=== PATIENT | female | born 1985 | race Two or more races ===

== ENCOUNTER 2019-05-23 12:32 | Emergency (ER) | payer OTHER ==
[2019-05-23 12:45] VITALS: BP 143/78; PULSE 95; TEMP 97.9; BMI 24.0
--- NOTE | 2019-05-23 13:33 | PDOC ---
History of Present Illness - General Chief Complaint: Cold Symptoms Stated Complaint: flu Symptoms Time Seen by Provider: 05/23/19 13:26 - History of Present Illness Initial Comments: 05/23/19 13:32 33-year-old female without comorbidities presents for flulike symptoms x1 day positive flu contact at home Past History - Past Medical History Allergies/Adverse Reactions: Allergies Allergy/AdvReac Type Severity Reaction Status Date / Time No Known Allergies Allergy Verified 10/28/17 10:02 Home Medications: Ambulatory Orders Iron 1 tab PO DAILY 10/22/17 Vitamins (Sjr) - 1 tab PO DAILY MDD 1 10/22/17 Ibuprofen [Motrin -] 600 mg PO QID #28 tablet 10/28/17 Asthma: No Cancer: No Cardiac Disorders: No Diabetes: No HTN: No Seizures: No Thyroid Disease: No - Psycho Social/Smoking Cessation Hx Smoking History: Never smoked Have you smoked in the past 12 months: No Information on smoking cessation initiated: No Hx Alcohol Use: No Drug/Substance Use Hx: No Hx Substance Use Treatment: No Review of Systems - Review of Systems Constitutional: Yes: Chills, Fever, Malaise, Night Sweats HEENTM: Yes: Nose Congestion Respiratory: Yes: Cough *Physical Exam - Vital Signs Last Vital Signs Temp Pulse Resp BP Pulse Ox 97.9 F 95 H 17 143/78 100 05/23/19 12:43 05/23/19 12:43 05/23/19 12:43 05/23/19 12:43 05/23/19 12:43 - Physical Exam 05/23/19 13:32 GENERAL: The patient is awake, alert, and fully oriented, in no acute distress. HEAD: Normal with no signs of trauma. EYES: sclera anicteric, conjunctiva clear. ENT: Ears normal tympanic membranes normal oropharynx clear uvula midline NECK: Normal range of motion LUNGS: Breath sounds equal, clear to auscultation bilaterally. No wheezes, and no crackles. HEART: S1 and S2 without murmur, rub or gallop. ABDOMEN: Soft, nontender, normoactive bowel sounds. No guarding, no rebound. No masses. EXTREMITIES: Normal range of motion, no edema. No clubbing or cyanosis. No cords, erythema, or tenderness. NEUROLOGICAL: Cranial nerves II through XII grossly intact. Normal speech, normal gait. PSYCH: Normal mood, normal affect. SKIN: Warm, Dry, normal turgor, no rashes or lesions noted. Medical Decision Making - Medical Decision Making 05/23/19 13:32 We will treat for influenza with Tamiflu based on positive contacts at home Discharge - Discharge Information Problems reviewed: Yes Clinical Impression/Diagnosis: Influenza Condition: Stable Disposition: HOME - Admission No - Follow up/Referral Referrals: Navjot Hernandez MD [Staff Physician] - - Patient Discharge Instructions Additional Instructions: Please take the Tamiflu as directed. Return to the emergency room for worsening symptoms. Without fail follow-up with your primary care physician in 2 to 3 days for further evaluation and treatment options. Tylenol Motrin as directed for pains and fever - Post Discharge Activity
== END 2019-05-23 13:42 | disposition home or self-care (01) ==
LOC: JERFT 12:32
DX: J11.1 Influenza due to unidentified influenza virus with other respiratory manifestations (principal)
CPT/HCPCS: 99281-25